=== PATIENT | female | born 1995 | race African-American/Black ===

== ENCOUNTER 2023-06-23 00:49 | Inpatient (IN) | payer BC ==
[2023-06-23] MEDS ORDERED: Ibuprofen 800 MG TAB PO PRN (00:56)
[2023-06-23] MEDS ORDERED: Methylergonovine 0.2 MG/ML VIAL IM PRN (00:56)
[2023-06-23] MEDS ORDERED: Ondansetron PF 4 MG/2 ML Vial IVP PRN ×4 (00:56→14:35)
[2023-06-23] MEDS ORDERED: Tranexamic Acid 1,000 MG/10 ML VIAL IVP PRN (00:56)
[2023-06-23] MEDS ORDERED: Zolpidem Tartrate 5 MG TAB PO PRN (00:56)
[2023-06-23] MEDS ORDERED: Carboprost 250 MCG/ML AMP IM PRN (00:56)
[2023-06-23] MEDS ORDERED: Misoprostol 200 MCG TAB PR PRN (00:56)
[2023-06-23] MEDS ORDERED: HYDROcodone/Acetaminophen 5/325 mg Tablet PO PRN ×2 (00:56)
[2023-06-23] MEDS ORDERED: Acetaminophen 500 MG TAB PO PRN (00:56)
[2023-06-23] MEDS ORDERED: Lidocaine 1% (PF) 30 ML VIAL SC PRN ×2 (00:56)
[2023-06-23] MEDS ORDERED: hydrALAZINE 20 MG/ML VIAL SLOW IVP PRN ×2 (00:56→18:04)
[2023-06-23] MEDS ORDERED: Diphenoxylate HCl/Atropine Tablet PO PRN ×2 (00:56)
[2023-06-23] MEDS ORDERED: Promethazine HCl 25 MG/ML VIAL IM PRN ×4 (00:56→14:33)
[2023-06-23] MEDS ORDERED: Oxytocin 30 units/NS 500 ML 500 ML IV SCH ×2 (01:00)
[2023-06-23 01:12] VITALS: BMI 43.5
[2023-06-23] MEDS: Lactated Ringer's 1,000 ML IV SCH (01:20)
[2023-06-23] MEDS: Penicillin G Potassium 5 MILL.UNITS in Sodium Chloride 0.9% 100 ML IVPB SCH (01:50)
[2023-06-23] MEDS: Misoprostol 100 MCG TAB VAG SCH (01:53)
[2023-06-23 02:30] LABS: HBsAg Index 0.24 S/CO (0-0.99); Hematocrit 34.7 % (34.9-44.5); Hemoglobin 11.2 g/dL (12.0-15.5); Hep B Surf Ag - L&D Non-Reactive S/CO (NonReactive); Mean Corpuscular HGB CONC 32.3 g/dL (32.0-36.0); Mean Corpuscular Hemoglobin 26.2 pg (27.0-33.0); Mean Corpuscular Volume 81.1 fl (81.6-98.3); Mean Platelet Volume 10.1 fl (7.4-10.4); Platelet Count 241 10x3/uL (150-450); RBC Distribution Width 14.6 % (11.5-14.5); Red Blood Cell (RBC) Count 4.28 10x6/uL (3.90-5.03); Syphilis Antibody Nonreactive (Nonreactive); Syphilis Antibody Index 0.06 S/CO (<1.00 Non-Reactive); White Blood Cell (WBC) Count 8.9 10x3/uL (3.5-10.5)
[2023-06-23] MEDS: Penicillin G 2.5 MILL.units 2.5 MILL.UNITS in Premix 1 BAG IVPB SCH (05:09)
[2023-06-23] MEDS ORDERED: Bupivacaine 0.25% HCL 30 ML VIAL ONE (08:00)
[2023-06-23] MEDS ORDERED: ePHEDrine Sulfate 50 MG/10 ML VIAL ONE (08:00)
[2023-06-23] MEDS: fentaNYL 50 mcg/mL 1 mL Vial SLOW IVP PRN (10:58)
[2023-06-23] MEDS: fentaNYL/Ropivacaine Epidural 100 ML ONE (11:28)
[2023-06-23] MEDS ORDERED: Naloxone HCl 0.4 mg/ml Vial IVP PRN ×4 (12:36→14:33)
[2023-06-23] MEDS ORDERED: Moisturizing Cream (Eucerin) 113 GM JAR TOP PRN ×2 (12:36→14:33)
[2023-06-23] MEDS ORDERED: Acetaminophen 325 MG TAB PO PRN ×2 (12:36→18:04)
[2023-06-23] MEDS ORDERED: Lactated Ringer's 500 ML IV PRN (12:36)
[2023-06-23] MEDS ORDERED: ePHEDrine Sulfate 50 MG/10 ML VIAL SLOW IVP PRN (12:36)
[2023-06-23] MEDS ORDERED: fentaNYL 2 mcg/Ropivacaine 0.2% Epidural 100 ML CADD EPIDURAL SCH (12:45)
[2023-06-23] MEDS ORDERED: Communication Order-Pharmacy FS SCH ×2 (12:45→14:45)
[2023-06-23] MEDS ORDERED: Bicitra 30 ML UDCUP PO PRN (12:55)
[2023-06-23] MEDS ORDERED: Famotidine/PF 20 mg/2ml Vial SLOW IVP PRN (12:55)
[2023-06-23] MEDS ORDERED: CEFAZOLIN 2 GM in Sodium Chloride 0.9% 100 ML IVPB SCH (13:00)
[2023-06-23] MEDS ORDERED: Azithromycin 500 MG in Sodium Chloride 0.9% 250 ML 250 ML IVPB SCH (13:00)
[2023-06-23 14:33] LABS: Analyzer IN Cardio CS NICU
[2023-06-23] MEDS ORDERED: Ondansetron HCl/PF 4 MG/2 ML Vial IVP PRN (14:33)
[2023-06-23] MEDS ORDERED: diphenhydrAMINE 50 MG/ML VIAL IVP PRN (14:33)
[2023-06-23] MEDS ORDERED: Naloxone HCl 0.4 mg/ml Vial IV PRN (14:33)
[2023-06-23 14:34] LABS: Analyzer IN Cardio CS NICU; RapidComm Collect By L & D NURSE; pH (Cord, venous) 7.283 (7.250-7.350)
[2023-06-23] MEDS ORDERED: fentaNYL 50 mcg/mL 1 mL Vial SLOW IVP PRN (14:35)
[2023-06-23] MEDS ORDERED: Meperidine HCl/PF 25 MG (1 mL) VIAL SLOW IVP PRN (14:35)
[2023-06-23] MEDS ORDERED: HYDROmorphone 0.5 MG/0.5 ML SYRINGE SLOW IVP PRN (14:35)
[2023-06-23] MEDS ORDERED: Ketorolac Tromethamine 30 MG (1 mL) VIAL IVP SCH (14:45)
[2023-06-23] MEDS: diphenhydrAMINE 50 MG/ML VIAL IVP PRN (15:18)
[2023-06-23] MEDS: Ketorolac Tromethamine 30 MG (1 mL) VIAL IVP PRN (17:41)
[2023-06-23] MEDS ORDERED: Bisacodyl 10 MG SUPP PR PRN (18:04)
[2023-06-23] MEDS ORDERED: Boostrix 0.5 ML (Tdap) VIAL (>/=7 yrs of age) IM ONE (18:04)
[2023-06-23] MEDS ORDERED: diphenhydrAMINE 25 MG CAP PO PRN (18:04)
[2023-06-23] MEDS ORDERED: Lanolin Ointment 7 GM TUBE TOP PRN (18:04)
[2023-06-23] MEDS: ePHEDrine Sulfate 50 MG/10 ML VIAL ONE (18:07)
[2023-06-23] MEDS: Azithromycin 500 MG VIAL ONE (18:07)
[2023-06-23] MEDS: fentaNYL 50 mcg/mL 1 mL Vial ONE (18:07)
[2023-06-23] MEDS: CEFAZOLIN 2 GM VIAL ONE (18:07)
[2023-06-23] MEDS: Erythromycin Base 0.5% Oint 1 GM TUBE ONE (18:08)
[2023-06-23] MEDS: Hepatitis B Vaccine 10 MCG/0.5 ML SYR ONE (18:09)
[2023-06-23] MEDS: Phytonadione Neonatal 1 MG/0.5 ML AMP ONE (18:09)
[2023-06-23] MEDS: Docusate 100 MG CAP PO SCH (22:46)
[2023-06-23] MEDS: Ferrous Sulfate 325 MG TAB PO SCH (22:46)
[2023-06-24 04:13] LABS: Hematocrit 31.3 % (34.9-44.5); Hemoglobin 10.2 g/dL (12.0-15.5); Mean Corpuscular HGB CONC 32.6 g/dL (32.0-36.0); Mean Corpuscular Hemoglobin 26.1 pg (27.0-33.0); Mean Corpuscular Volume 80.1 fl (81.6-98.3); Mean Platelet Volume 9.9 fl (7.4-10.4); Platelet Count 211 10x3/uL (150-450); RBC Distribution Width 14.6 % (11.5-14.5); Red Blood Cell (RBC) Count 3.91 10x6/uL (3.90-5.03); White Blood Cell (WBC) Count 12.5 10x3/uL (3.5-10.5)
[2023-06-24] MEDS: Simethicone Chewable 80 MG TAB PO PRN (04:50)
[2023-06-24] MEDS: HYDROcodone/Acetaminophen 5/325 mg Tablet PO PRN (04:51)
[2023-06-24] MEDS: Prenatal Vitamin 1 TAB PO SCH (08:56)
[2023-06-25] MEDS: Ibuprofen 800 MG TAB PO SCH (00:48)
[2023-06-25 08:32] VITALS: BP 128/69; TEMP 97.5
== END 2023-06-25 12:30 | disposition home or self-care (01) | DRG 788 ==
LOC: CSHLD 00:49 → CSHPED 17:23
PROVIDERS: ADMIT Obstetrics & Gynecology; ATTEND Obstetrics & Gynecology
PROC: 10D00Z1 Extraction of Products of Conception, Low, Open Approach (ICD-10-PCS; principal; 2023-06-23)
PROC: 3E033XZ Introduction of Vasopressor into Peripheral Vein, Percutaneous Approach (ICD-10-PCS; 2023-06-23)
PROC: 3E0334Z Introduction of Serum, Toxoid and Vaccine into Peripheral Vein, Percutaneous Approach (ICD-10-PCS; 2023-06-24)
DX: O76 Abnormality in fetal heart rate and rhythm complicating labor and delivery (principal); O99.214 Obesity complicating childbirth; O99.02 Anemia complicating childbirth; D50.9 Iron deficiency anemia, unspecified; E66.01 Morbid (severe) obesity due to excess calories; O99.824 Streptococcus B carrier state complicating childbirth; O26.893 Other specified pregnancy related conditions, third trimester; Z67.41 Type O blood, Rh negative; Z3A.39 39 weeks gestation of pregnancy; Z37.0 Single live birth
CPT/HCPCS: 36415; 51702; 82805; 85027; 85461; 86780; 86850; 86900; 86901; 87340; 90384; 96372; J0665; J1200; J1885; J2540; J3010; J3490; J7120